=== PATIENT | female | born 1975 | race African-American/Black ===

== ENCOUNTER 2016-12-09 14:16 | Emergency (ER) | payer OTHER ==
[2016-12-09 14:19] VITALS: BP 117/71; PULSE 88; TEMP 98.3; BMI 28.7
--- NOTE | 2016-12-09 15:21 | PDOC ---
History of Present Illness - General Chief Complaint: Injury Stated Complaint: INJURY TO LT FOOT Time Seen by Provider: 12/09/16 14:38 - History of Present Illness Initial Comments: 12/09/16 14:54 CHIEF COMPLAINT: HISTORY OF PRESENT ILLNESS: fell down stairs yesterday, landed on ft, pain today. ambulatory No recent travel or sick contacts. PAST MEDICAL HISTORY: Denies past medical history FAMILY HISTORY: Denies SOCIAL HISTORY: Lives at home with ____. Occupation: . Denies tobacco, alcohol, illicit drug use. SURGICAL HISTORY: Denies ALLERGIES: No known drug allergies REVIEW OF SYSTEMS General/Constitutional: Denies fever or chills. Denies weakness, weight change. HEENT: Denies change in vision. Denies ear pain or discharge. Denies sore throat. Cardiovascular: Denies chest pain or shortness of breath. Respiratory: Denies cough, wheezing, or hemoptysis. Gastrointestinal: Denies nausea, vomiting, diarrhea or constipation. Denies rectal bleeding. Genitourinary: Denies dysuria, frequency, or change in urination. Musculoskeletal: Denies joint or muscle swelling or pain. Denies neck or back pain. Skin and breasts: Denies rash or easy bruising. Neurologic: Denies headache, vertigo, loss of consciousness, or loss of sensation. Psychiatric: Denies depression or anxiety. Endocrine: Denies increased thirst. Denies abnormal weight change. Hematologic/Lymphatic: Denies anemia, easy bleeding, or history of blood clots. Allergic/Immunologic: Denies hives or skin allergy. Denies latex allergy. PHYSICAL EXAM General Appearance: Well-appearing, appropriately dressed. No apparent distress , no intoxication. HEENT: EOMI, PERRLA, normal ENT inspection, normal voice, TMs normal, pharynx normal. No conjunctival pallor. No photophobia, scleral icterus. Neck: Supple. Trachea midline. No tenderness, rigidity, carotid bruit, stridor , lymphadenopathy, or thyromegaly. Respiratory/Chest: Lungs CTAB. No shortness of breath, chest tenderness, respiratory distress, accessory muscle use. No crackles, rales, rhonchi, stridor , wheezing, dullness Cardiovascular: RRR. S1, S2. No JVD, murmur, bradycardia, tachycardia. Vascular Pulses: Dorsalis-Pedis (R): 2+, Dorsalis-Pedis (L): 2+ Gastrointestinal/Abdominal: Normal bowel sounds. Abdomen soft, non-distended. No tenderness or rebound tenderness. No organomegaly, pulsatile mass, guarding , hernia, hepatomegaly, splenomegaly. Lymphatic: No adenopathy, tenderness. Musculoskeletal/Extremities: Normal inspection. FROM of all extremities, normal capillary refill. Pelvis Stable. No CVA tenderness. No tenderness to extremities, pedal edema, swelling, erythema or deformity. Integumentary: Appropriate color, dry, warm. No cyanosis, erythema, jaundice or rash Neurologic: key bed installer II-XII intact. Fully oriented, alert. Appropriate mood/affect. Motor strength 5/5. No appreciable EOM palsy, facial droop or sensory deficit. Past History - Past Medical History Allergies/Adverse Reactions: Allergies Allergy/AdvReac Type Severity Reaction Status Date / Time No Known Allergies Allergy Verified 12/09/16 14:19 Home Medications: Ambulatory Orders NK [No Known Home Medication] 12/09/16 Anemia: Yes - Psycho/Social/Smoking Cessation Hx Anxiety: No Suicidal Ideation: No Smoking History: Never smoked Hx Alcohol Use: No Drug/Substance Use Hx: No Substance Use Type: None *Physical Exam - Vital Signs Last Vital Signs Temp Pulse Resp BP Pulse Ox 98.3 F 88 20 117/71 100 12/09/16 14:16 12/09/16 14:16 12/09/16 14:16 12/09/16 14:16 12/09/16 14:16 ED Treatment Course - RADIOLOGY Radiology Studies Ordered: Category Date Time Status ANKLE & FOOT-LEFT* [RAD] Stat Radiology 12/09/16 14:53 Ordered Medical Decision Making - Medical Decision Making 12/09/16 15:25 41 yo F with no PMH presents to fast track s/p fall down stairs with left foot pain. X-ray R ankle/ft Negative x-ray. Crutches, chaka bandage. Advised patient to apply RICE therapy to R foot. Advised patient to f/u with ortho if pain and swelling persists past 1 week. Advised patient of signs and symptoms for return to ER; patient verbalized understanding and agrees to paln. *DC/Admit/Observation/Transfer Diagnosis at time of Disposition: Foot pain, left - Discharge Dispostion Disposition: HOME Condition at time of disposition: Stable Admit: No - Referrals Referrals: Elmer Willis [Primary Care Provider] - Leo Acosta MD [Staff Physician] - - Patient Instructions Printed Discharge Instructions: How To Perform RICE (Rest, Ice, Compress, Elevate), DI for Foot Pain Additional Instructions: Please take medication as prescribed. Follow up with podiatry for persistent pain x 1 week. If you become unable to walk, or are unable to feel your toes, or you develop any new or worsening symptoms, please return to the ER.
== END 2016-12-09 15:50 | disposition home or self-care (01) ==
LOC: JERFT 14:16
DX: S99.822A Other specified injuries of left foot, initial encounter (principal); W10.9XXA Fall (on) (from) unspecified stairs and steps, initial encounter; Y93.89 Activity, other specified; Y92.89 Other specified places as the place of occurrence of the external cause
CPT/HCPCS: 73610-TC-LT; 73630-TC-LT; 99281-25